=== PATIENT | male | born 1985 ===

== ENCOUNTER → 2023-09-29 16:10 | Outpatient (CLI) | payer BC, SELFPAY ==
--- NOTE | ~2023-09-29 | MR_ITS ---
MRI of the left knee Clinical history: Pain Technique: Coronal proton density and proton density-weighted images, sagittal proton-density and T2 fat-sat images, and axial proton-density fat-saturated images were acquired. Findings: Anterior and posterior cruciate ligaments are intact. Medial collateral ligament and the la teral collateral ligament complex are intact. Popliteus tendon is intact. There is horizontal/complex tearing of the body segment of the medial meniscus. No lateral meniscal t ear seen. Articular cartilage is well preserved throughout the knee. Bone marrow signals are unremarkable. Extensor mechanism is intact. No significant joint effusion or Tripp's cyst. Impression: Horizontal/complex tearing of the body segment of the medial meniscus. Reviewed, dictated and finalized at location M. [facility] PROFESSOR Impression: Horizontal/complex tearing of the body segment of the medial meniscus.
== END ==
PROVIDERS: PCP Physician Assistant; Visit Provider Physician Assistant
DX: S83.232A Complex tear of medial meniscus, current injury, left knee, initial encounter (principal); X58.XXXA Exposure to other specified factors, initial encounter
CPT/HCPCS: 73721